=== PATIENT | male | born 1945 | race Caucasian/White ===

== ENCOUNTER → 2016-10-26 | Outpatient (CLI) | payer MEDICARE ==
[~2016-10-26] MED LIST: CPR500T PO; HCTZ12.5T PO; LSRT50T PO; PRV20T PO; SIMV40TA; TAMS-8; TAMS0.4C2 PO; bp med
[2016-10-26 09:55] LABS: ANION GAP 16.9 MEQ/L (3-15); MAGNESIUM* 1.9 mg/dL (1.6-2.3)
== END ==
LOC: LAB 09:08
PROVIDERS: ATTEND Family Medicine
DX: E13.65 Other specified diabetes mellitus with hyperglycemia (principal); E83.42 Hypomagnesemia; R79.89 Other specified abnormal findings of blood chemistry
CPT/HCPCS: 36415; 80048; 83036; 83735